=== PATIENT | female | born 1970 | race Caucasian/White ===

== ENCOUNTER 2017-08-03 10:46 | Day surgery (SDC) | payer OTHER ==
[2017-07-26 13:04] VITALS: BMI 38.2
[2017-08-03] MEDS ORDERED: Propofol 10 mg/ml Inj (20 ML) ONE (13:10)
[2017-08-03] MEDS ORDERED: Etomidate 20 mg/10ml Inj IV ONE (13:15)
[2017-08-03] MEDS ORDERED: Benzocaine/Butamben/Tetracai 14-2-2% TOP Spray TOP ONE (13:16)
[2017-08-03] MEDS ORDERED: Naloxone 0.4 mg/ml Inj (Adult) ONE (13:19)
[2017-08-03 14:55] VITALS: BP 136/75; PULSE 62; RESP 18; TEMP 97.9; O2SAT 97
== END 2017-08-03 15:22 | disposition home or self-care (01) ==
LOC: ENDO 10:46
PROVIDERS: ATTEND Internal Medicine Gastroenterology
DX: K29.50 Unspecified chronic gastritis without bleeding (principal); B96.81 Helicobacter pylori [H. pylori] as the cause of diseases classified elsewhere; K56.699 Other intestinal obstruction unspecified as to partial versus complete obstruction; K21.0 Gastro-esophageal reflux disease with esophagitis; K57.30 Diverticulosis of large intestine without perforation or abscess without bleeding; K64.8 Other hemorrhoids
CPT/HCPCS: 43239; 45380; 84703; 88305; 88312; 88342; J2310; J2704; J3010; J7040